=== PATIENT | male | born 1965 | race Caucasian/White ===

== ENCOUNTER 2016-06-21 13:48 | Emergency (ER) | payer MEDICARE, MEDICAID, SELFPAY ==
[2016-06-21 14:39] VITALS: TEMP 99.2; BMI 27.7
[2016-06-21] MEDS ORDERED: IBUPROFEN 600 MG TAB PO ONE (14:55)
[2016-06-21] MEDS ORDERED: OXYCODONE HCL 5 MG TABLET PO ONE (14:55)
--- NOTE | 2016-06-21 15:14 | DIRPT ---
CLINICAL DATA: Fall this morning with headaches and facial pain particularly on the right EXAM: CT HEAD WITHOUT CONTRAST CT MAXILLOFACIAL WITHOUT CONTRAST TECHNIQUE: Multidetector CT imaging of the head and maxillofacial structures were performed using the standard protocol without intravenous contrast. Multiplanar CT image reconstructions of the maxillofacial structures were also generated. COMPARISON: None. FINDINGS: CT HEAD FINDINGS The bony calvarium is intact. The ventricles are of normal size and configuration. No findings to suggest acute hemorrhage, acute infarction or space-occupying mass lesion are noted. CT MAXILLOFACIAL FINDINGS Paranasal sinuses are well aerated as are the mastoid air cells. A single mucosal retention cyst is noted inferiorly within the right maxillary antrum. The orbits and their contents are within normal limits. Very minimal soft tissue swelling is noted over the right thigh. No acute bony abnormality is seen. IMPRESSION: CT of the head: No acute intracranial abnormality noted. CT of the maxillofacial bones: Minimal right periorbital swelling. No acute bony abnormality is seen. Electronically Signed By: Jimbo López M.D. On: 06/21/2016 15:11
--- NOTE | 2016-06-21 15:23 | EDPRACDOC ---
- General Chief Complaint: Fall Stated Complaint: FELL THIS AM, HEADACHE, RT EYE SWELLING Time Seen by Provider: 06/21/16 14:53 Information Source: Patient - History of Present Illness Onset: today HPI: PT PRESENTS TODAY WITH FACIAL PAIN AFTER MECHANICAL FALL THIS MORNING. UNSURE OF LOC. NO OTHER INJURY REPORTED. NOT ANTI-COAGULATED. Pain Severity: Reports: Moderate Injuries/Pain Location: Reports: head Reason for Fall: Reports: tripped Loss of Consciousness: unsure Associated Symptoms (Fall): Reports: denies symptoms Allergies/Adverse Reactions: Allergies Penicillins Allergy (Verified 06/21/16 14:42) Rash-Generalized Home Medications: Ambulatory Orders Amitriptyline HCl 100 mg PO BID 06/21/16 Atenolol 25 mg PO BID 06/21/16 Cyclobenzaprine HCl 10 mg PO QID PRN 06/21/16 Esomeprazole Mag Trihydrate [Nexium] 40 mg PO DAILY 06/21/16 Hydrocodone/Acetaminophen [Hydrocodon-Acetaminophn 10-325] 1 each PO BID PRN Levetiracetam 1,000 mg PO HS 06/21/16 Loratadine [Claritin] 10 mg PO DAILY 06/21/16 Meloxicam [Mobic] 7.5 mg PO BID #20 tab 06/21/16 Naproxen 500 mg PO BID 06/21/16 Ondansetron HCl [Zofran] 4 mg PO Q6H PRN #20 tab 06/21/16 Sildenafil Citrate [Revatio] 20 mg PO DAILY PRN 06/21/16 Simvastatin 10 mg PO DAILY 06/21/16 Tramadol HCl [Ultram] 50 mg PO TID PRN 06/21/16 Verapamil HCl [Verapamil ER] 120 mg PO BID 06/21/16 ED Past Medical History - History Reviewed Yes Nurses notes reviewed and agree except as marked - Patient Medical History Neurological History: Reports: Cerebrovascular Accident (TIA x2) Cardiac History: Reports: Hypertension, Congestive Heart Failure, Hypercholesterolemia GI/ History: Reports: Gastroesophageal Reflux Psychological History: Denies: Depression - Social Medical History Smoking Status: Former smoker EDM Review of Systems - Review of Systems ROS Negative Except as Marked: Yes All systems reviewed and were negative except as marked Constitutional: No Symptoms Reported Eyes: No Symptoms Reported Ears: No Symptoms Reported Throat: No Symptoms Reported Nose: No Symptoms Reported Respiratory: No Symptoms Reported Cardiovascular: No Symptoms Reported Gastrointestinal: No Symptoms Reported Neurological: No Symptoms Reported Musculoskeletal: No Symptoms Reported Integumentary: Bruising - Physical Exam Constitutional: Alert (Awake), No apparent distress Oriented to: Time, Person, Place Last recorded Vital Signs: Last Vital Signs Temp 99.2 F 06/21/16 14:32 Pulse 85 06/21/16 14:32 Resp 20 06/21/16 14:32 BP 132/67 06/21/16 14:32 Pulse Ox 96 06/21/16 14:32 Oxygen Pulse Oxygen Saturation 96 O2 Device Room Air Oxygen Flow Rate Fraction of Inspired Oxygen ( FIO2) - HEENT Head: Normal Eye Exam: Other (PERIORBITAL BRUISING AND UPPER CHEEK SWELLING TO RIGHT EYE; NOTED CONJUNTIVAL HEMORRHAGE; NO APPARENT DEFORMITY; PERRL; EOMI; RED REFLEX NOTED) Oropharynx: Normal Tympanic Membrane: Normal ENT EAC: Normal Nose: No Symptoms Reported Neck: Normal, Denies Pain, Midline - Respiratory/Cardiovascular Respiratory: Normal - CTA Cardiovascular: Normal - GI Palpation: Normal Tenderness: Non tender - Musculoskeletal Back: Normal Extremities: Normal - Integumentary Skin: Normal Lymphatics: Normal - Neurologic Cerebellar: Normal Mood Description: Normal Thought: Coherent Perception: Normal ED Injury/Fall Exam - Physical Exam Head Injury: ecchymosis, swelling, tenderness Extremity Exam: no evidence of injury Skin: Normal - Kenneth Coma Score Best Eye Response (Kenneth): (4) open spontaneously Best Verbal Response (Kenneth): (5) oriented Best Motor Response (Kenneth): (6) obeys commands Froid Total: 15 Decision Time to Discharge: 15:23 - Departure Disposition: Home Condition: Good Final Diagnosis: Accidental fall Facial contusion Qualifiers: Encounter type: initial encounter Qualified Code(s): S00.83XA - Contusion of other part of head, initial encounter Instructions: RICE: Routine Care for Injuries Education/Counseling Given To: Patient Education/Counseling Given Regarding: Diagnosis, Treatment, Follow Up Referrals: Jose Guadalupe Treadwell MD [Primary Care Provider] - One Week Prescriptions: New Meloxicam [Mobic] 7.5 mg PO BID #20 tab Ondansetron HCl [Zofran] 4 mg PO Q6H PRN #20 tab PRN Reason: Nausea/Vomiting No Action Levetiracetam 1,000 mg PO HS Sildenafil Citrate [Revatio] 20 mg PO DAILY PRN PRN Reason: erectile dysfunction Esomeprazole Mag Trihydrate [Nexium] 40 mg PO DAILY Cyclobenzaprine HCl 10 mg PO QID PRN PRN Reason: Pain Tramadol HCl [Ultram] 50 mg PO TID PRN PRN Reason: Pain Hydrocodone/Acetaminophen [Hydrocodon-Acetaminophn 10-325] 1 each PO BID PRN PRN Reason: Pain Loratadine [Claritin] 10 mg PO DAILY Amitriptyline HCl 100 mg PO BID Verapamil HCl [Verapamil ER] 120 mg PO BID Simvastatin 10 mg PO DAILY Atenolol 25 mg PO BID Naproxen 500 mg PO BID Additional Instructions: ICE PACKS TO DECREASE SWELLING
[2016-06-21] MEDS ORDERED: ONDANSETRON HCL 4 MG ODT TAB PO ONE (15:28)
[2016-06-21 15:34] VITALS: BP 148/78; PULSE 91
== END 2016-06-21 15:44 | disposition home or self-care (01) ==
LOC: EDMC 13:48
DX: S00.83XA Contusion of other part of head, initial encounter (principal); W01.0XXA Fall on same level from slipping, tripping and stumbling without subsequent striking against object, initial encounter; I10 Essential (primary) hypertension; I50.9 Heart failure, unspecified; E78.00 Pure hypercholesterolemia, unspecified; K21.9 Gastro-esophageal reflux disease without esophagitis; Z79.899 Other long term (current) drug therapy; Z86.73 Personal history of transient ischemic attack (TIA), and cerebral infarction without residual deficits
CPT/HCPCS: 70450; 70486; 99283; A9270; J3490